=== PATIENT | female | born 1945 | race Caucasian/White ===

== ENCOUNTER → 2022-06-24 11:59 | Outpatient (CLI) | payer OTHER, SELFPAY ==
--- NOTE | 2022-06-24 | DI.ECHO.S_ITS ---
[facility]---------+ [facility] +---------+ : : [address] : [place] : : : : [id number] : : : : Phone: [phone]---------+ Echocardiogram Report + + :Name: ALIYAH HUNT Study Date: 06/24/2022 Height: 62 in : :[facility] ReadingLocation: Weight: 134 lb : : Gender: Female BSA: 1.6 m2 : :: 1945 Age: 77 yrs BP: 130/90 mmHg: :Reason For Study: Atrial Fibrillation : :Ordering Physician: AZEB : :KP Performed By: Amber Ferguson : :Referring: KP BOWIE : + + Interpretation Summary The patient was in atrial fibrillation with heart rates between 78-107 bpm during the exam. The left ventricle is normal in size. The ejection fraction is estimated to be 60-65%. The right ventricle is normal in size and function. There is moderate to severe mitral regurgitation. The mitral regurgitant jet is eccentrically directed. Mild to moderately calcified aortic valve with mildly reduced excursion. Mild aortic stenosis. Peak aortic valve velocity about 2.03 m/s and mean gradient 9.0 mmHg. Associated mild AR. There is moderate tricuspid regurgitation. The right ventricular systolic pressure is estimated to be at least 52.6 mmHg based on an estimated right atrial pressure of 3 mm Hg. There is moderate pulmonary hypertension. Mild atherosclerotic plaque(s) in the aortic arch. There is mild luminal irregularity and echogenicity in the abdominal aorta, suggestive of aortic atherosclerotic disease. Procedure: A two-dimensional transthoracic echocardiogram with color flow and Doppler was performed. The study quality was technically good. There is no prior echocardiogram noted for this patient. The patient was in atrial fibrillation with heart rates between 78-107 bpm during the exam. Left Ventricle: The left ventricle is normal in size. Proximal septal thickening is noted. There is no thrombus. The ejection fraction is estimated to be 60-65%. There are no focal wall motion abnormalities. Diastolic function could not be accurately assessed due to atrial fibrillation. Right Ventricle: The right ventricle is normal in size and function. Atria: The left atrium is severely dilated. The right atrium is moderately dilated. There is no Doppler evidence for an interatrial shunt. Mitral Valve: The mitral valve leaflets appear mildly thickened, but open well. There is mild mitral annular calcification. There is moderate to severe mitral regurgitation. The mitral regurgitant jet is eccentrically directed. Aortic Valve: The aortic valve is trileaflet. Mild to moderately calcified aortic valve with mildly reduced excursion. Mild aortic stenosis. Peak aortic valve velocity about 2.03 m/s and mean gradient 9.0 mmHg. Associated mild AR. There is mild aortic stenosis. There is mild aortic regurgitation. Tricuspid Valve: The tricuspid valve is normal. There is moderate tricuspid regurgitation. The right ventricular systolic pressure is estimated to be at least 52.6 mmHg based on an estimated right atrial pressure of 3 mm Hg. There is moderate pulmonary hypertension. Pulmonic Valve: The pulmonic valve leaflets are thin and pliable; valve motion is normal. There is mild pulmonic regurgitation. Great Vessels: The aortic root is normal size. The ascending aorta is normal in size. Mild atherosclerotic plaque(s) in the aortic arch. There is mild luminal irregularity and echogenicity in the abdominal aorta, suggestive of aortic atherosclerotic disease. The pulmonary artery is normal size. The IVC is of normal diameter and collapses greater than 50% with a sniff. This suggests a low right atrial pressure of 3 mm Hg. Pericardium/ Pleura There is no pericardial effusion. MMode/2D Measurements & Calculations LVIDd: 4.1 cm LVOT diam: 1.9 cm LVIDs: 2.6 cm Ao root diam: 3.3 cm FS: 36.6 % asc Aorta Diam: 3.0 cm EPSS: 0.30 cm IVSd: 1.0 cm LVPWd: 0.90 cm LV long. diameter/BSA (cm/m^2): 2.5 LV sys. diameter/BSA (cm/m^2): 1.6 LA dimension: 4.7 cm RA long axis: 5.0 cm LA A2 area: 24.7 cm2 RA area: 15.7 cm2 LA A4 area: 29.0 cm2 RA vol: 42.3 ml LA length (vol): 6.5 cm RA : 26.3 ml/m2 LA vol: 93.8 ml LA vol index: 58.2 ml/m2 RVD1 (basal): 3.6 cm LVLs ap4: 7.0 cm LVLd ap2: 8.1 cm TAPSE_phl: 2.1 cm LVLs ap2: 6.3 cm Doppler Measurements & Calculations Ao V2 max: 203.7 cm/sec LVOT Max Harsh: 82.4 cm/sec Ao V2 mean: 142.3 cm/sec LV V1 max P.7 mmHg Ao max P.0 mmHg LV V1 VTI: 15.3 cm Ao mean P.0 mmHg KEHINDE(I,D): 1.2 cm2 Ao V2 VTI: 35.8 cm KEHINDE(V,D): 1.1 cm2 sev ratio: 0.43 KEHINDE indexed to BSA (cm^2/m^2): 0.75 AI P1/2t: 536.6 msec AI dec slope: 232.0 cm/sec2 MV E max harsh: 162.0 cm/sec TR max harsh: 352.0 cm/sec Med Peak E' Harsh: 8.6 cm/sec TR max P.6 mmHg E/E' med: 18.9 PA V2 max: 83.3 cm/sec Lat Peak E' Harsh: 10.2 cm/sec PA V2 mean: 57.9 cm/sec E/E' lat: 15.9 PA mean P.3 mmHg E/e' average: 17.4 MV dec time: 0.21 sec MVA(VTI): 1.5 cm2 MV V2 mean: 106.7 cm/sec MR VTI: 129.0 cm MV mean P.0 mmHg MV V2 VTI: 28.6 cm SV(LVOT): 43.4 ml AV P1/2t-pr_phl: 537.0 msec AV VR_phl: 0.40 KEHINDE(VTI)/BSA_phl: 0.75 MV P1/2t-pr_phl: 63.0 msec Reading Physician:02:28 PM
== END ==
PROVIDERS: PCP Preventive Medicine Public Health & General Preventive Medicine; Referring Provider Registered Nurse; Visit Provider Registered Nurse
DX: I48.91 Unspecified atrial fibrillation (principal); I08.3 Combined rheumatic disorders of mitral, aortic and tricuspid valves; I27.20 Pulmonary hypertension, unspecified
CPT/HCPCS: 93306